=== PATIENT | male | born 1980 | race Caucasian/White ===

== ENCOUNTER 2019-10-25 11:56 | Emergency (ER) | payer SELFPAY ==
[~2019-10-25] VITALS: Ht 175.3 cm; Wt 68.0 kg
[2019-10-25 12:57] VITALS: Ht 175.3 cm; Wt 68.0 kg
[2019-10-25 14:55] VITALS: BP 126/82
== END 2019-10-25 14:55 | disposition home or self-care (01) ==
LOC: ED 11:56
DX: S92.002A Unspecified fracture of left calcaneus, initial encounter for closed fracture (principal); S93.401A Sprain of unspecified ligament of right ankle, initial encounter; W13.2XXA Fall from, out of or through roof, initial encounter; Y93.89 Activity, other specified; Y92.89 Other specified places as the place of occurrence of the external cause; Y99.8 Other external cause status
CPT/HCPCS: Q0092